=== PATIENT | female | born 1950 | race Two or more races ===

== ENCOUNTER 2018-12-07 00:23 | Emergency (ER) | payer SELFPAY ==
[~2018-12-07] VITALS: Ht 167.6 cm; Wt 58.1 kg
--- NOTE | 2018-12-07 00:45 | NUR ---
BIBRA FROM HOME. AAOX4. NAD, BREATHING IS EVEN AND UNLABORED. C/O DIZZYNESS. PT REPORTS TAKING CANNABIS FRO ANXIETY. DENIES CP. DAUGHTER AT BEDSDIE WITH PT. TO ER BED 4. AWAITING MD FOR ARIELLE AND ORDERS.
[2018-12-07] MEDS ORDERED: ASPIRIN 325 MG TABLET ONE (00:58)
[2018-12-07 01:07] VITALS: BP 159/81
[2018-12-07] MEDS ORDERED: ONDANSETRON 4 MG TAB.RAPDIS ONE (01:20)
--- NOTE | 2018-12-07 01:28 | NUR ---
PT HAD X1 EPISODE OF VOMITING. MD MADE AWARE. VERBAL ORDER TO GIVE ZOFRAN 4MG PO.
[2018-12-07] MEDS ORDERED: ONDANSETRON 4 MG TAB.RAPDIS SL ONE (01:30)
--- NOTE | 2018-12-07 01:30 | NUR ---
Patient discharged to home in stable condition. Written and verbal after care instructions given. Patient verbalizes understanding of instruction. Pt ambulatory with a steady gait
== END 2018-12-07 01:37 | disposition home or self-care (01) ==
LOC: ER 00:26
DX: F12.10 Cannabis abuse, uncomplicated (principal); I10 Essential (primary) hypertension; E11.9 Type 2 diabetes mellitus without complications
CPT/HCPCS: 99283; Q0162